=== PATIENT | female | born 1990 | race Caucasian/White ===

== ENCOUNTER → 2020-01-07 23:22 | Observation (INO) ==
[2020-01-07 23:06] LABS: Bilirubin,Urine Negative (Negative); Blood,Urine Negative (Negative); Clarity,Urine Clear (Clear); Color,Urine Yellow (Yellow); Glucose,Urine (UA) Normal (Normal); Ketones,Urine Negative (Negative); Leukocyte Esterase,Urine Negative (Negative); Nitrite,Urine Negative (Negative); PH,Urine 6.5 pH Units (5.0-8.0); Protein,Urine Negative (Neg-Trace); Specific Gravity,Urine 1.017 (1.010-1.025); Urobilinogen,Urine Normal (Normal)
== END | disposition home or self-care (01) ==
LOC: 1NENULAB
PROVIDERS: ADMIT Obstetrics & Gynecology; ATTEND Obstetrics & Gynecology

== ENCOUNTER 2020-06-13 06:00 | Inpatient (IN) ==
[2020-06-13] MEDS ORDERED: Naloxone 0.4 MG/ML INJ IVP PRN (07:29)
[2020-06-13] MEDS ORDERED: Lidocaine 1% 20 ML MDV INFILT PRN (07:29)
[2020-06-13] MEDS ORDERED: Azithromycin 500 MG in 0.9 % Sodium Chloride 250 ML IVPB ONE (07:29)
[2020-06-13] MEDS ORDERED: *HR* FentaNYL (PF) 100 MCG/2 ML VIAL IVP PRN (07:29)
[2020-06-13] MEDS ORDERED: Ondansetron 4 MG/2 ML VIAL IVP PRN (07:29)
[2020-06-13] MEDS ORDERED: Famotidine 20 MG/2 ML VIAL IVP PRN (07:29)
[2020-06-13] MEDS ORDERED: Metoclopramide 10 MG/2 ML VIAL IVP PRN (07:29)
[2020-06-13 08:24] LABS: Basophils % 0.3 %; Eosinophils % 0.3 %; Hematocrit 41.7 % (35.3-44.9); Hemoglobin 13.9 g/dL (11.5-15.4); Immature Granulocytes % 0.4 % (0-4); Lymphocytes # 2.3 K/mcL (0.6-4.6); Lymphocytes % 16.3 %; Mean Corpuscular HGB Conc 33.3 g/dL (31.6-35.5); Mean Corpuscular Volume 83.9 fL (83.0-100.0); Mean Platelet Volume 10.6 fL (9.4-12.4); Monocytes # 0.7 K/mcL (0.0-1.3); Monocytes % 4.6 %; Neutrophils # 11.1 K/mcL (1.6-8.9); Platelet Count 198 K/mcL (140-400); Red Blood Count 4.97 M/mcL (3.82-4.97); Red Cell Distribution Width 13.8 % (11.5-14.5); Segmented Neutrophils % 78.1 %; White Blood Count 14.2 K/mcL (4.3-11.1)
[2020-06-13 08:32] LABS: Amphetamine Screen,Urine Negative ng/mL (Cutoff=1000); Barbiturate Screen,Urine Negative ng/mL (Cutoff=200); Benzodiazepines Screen,Urine Negative ng/mL (Cutoff=200); Cannabinoid Screen,Urine Negative ng/mL (Cutoff = 50); Cocaine Screen,Urine Negative ng/mL (Cutoff= 300); Opiate Screen,Urine Negative ng/mL (Cutoff=300); Phencyclidine Screen,Urine Negative ng/mL (Cutoff=25)
[2020-06-13] MEDS ORDERED: EPHEDrine 50 MG/ML VIAL IVP PRN (09:26)
[2020-06-13] MEDS ORDERED: Epidural Premix (fent/bupiv) 110 ML EP SCH (09:30)
[2020-06-13 09:54] LABS: Protein/Creatinine Ratio,Urine 0.54 mg/mg (0.00-0.20)
[2020-06-13] MEDS ORDERED: Oxytocin 20 units/ LR 1000 mL 20 UNIT/1,000 ML BAG IVC ONE (09:54)
[2020-06-13] MEDS: Ringers Solution, Lactated 1,000 ML IVC SCH ×2 (09:58→12:58)
[2020-06-13 10:00] LABS: Alanine Aminotransferase 11 Units/L (7-52); Aspartate Amino Transferase 15 Units/L (13-39); BUN/Creatinine Ratio 22 (6-26); Blood Urea Nitrogen 13 mg/dL (6-20); Lactate Dehydrogenase 131 Units/L (140-271); Uric Acid 6.2 mg/dL (2.3-7.6); eGFR For African Americans > 60 (> 60); eGFR For Non-African Americans > 60 (> 60)
[2020-06-13] MEDS ORDERED: Oxytocin 20 units/ LR 1000 mL 20 UNIT/1,000 ML BAG IVC SCH ×2 (10:00→19:20)
[2020-06-13] MEDS ORDERED: Magnesium Sulf 20 gm/SW 500mL 20 GM/500 ML IV.SOLN IVC SCH (11:30)
[2020-06-13] MEDS ORDERED: *HR* FentaNYL (PF) 100 MCG/2 ML VIAL ONE (11:42)
[2020-06-13] MEDS ORDERED: Ropivacaine/PF 0.2% 20 ML VIAL ONE (11:42)
[2020-06-13] MEDS ORDERED: *HR* Labetalol 20 MG/4 ML SYRINGE IVP ONE ×3 (12:31→13:06)
[2020-06-13] MEDS ORDERED: Calcium Gluconate 1,000 MG/10 ML VIAL IVP ONE (14:03)
[2020-06-13] MEDS ORDERED: Measles/Mumps/Rubella Vacc 0.5 ML VIAL SQ PRN (19:20)
[2020-06-13] MEDS ORDERED: Acetaminophen 325 MG TABLET PO PRN (19:20)
[2020-06-13] MEDS: Magnesium Sulf 20 gm/SW 500mL 20 GM/500 ML IV.SOLN IVC SCH (22:00)
[2020-06-13] MEDS: Ibuprofen 600 MG TABLET PO PRN (22:02)
[2020-06-14 07:01] LABS: Basophils # 0.1 K/mcL (0.0-0.2); Basophils % 0.4 %; Eosinophils # 0.1 K/mcL (0.0-0.6); Eosinophils % 0.5 %; Hematocrit 37.5 % (35.3-44.9); Immature Granulocytes % 0.2 % (0-4); Lymphocytes % 15.9 %; Mean Corpuscular HGB Conc 32.8 g/dL (31.6-35.5); Mean Corpuscular Hemoglobin 28.1 pg (28.0-33.3); Mean Corpuscular Volume 85.8 fL (83.0-100.0); Mean Platelet Volume 10.8 fL (9.4-12.4); Monocytes # 0.9 K/mcL (0.0-1.3); Monocytes % 7.3 %; Neutrophils # 9.5 K/mcL (1.6-8.9); Platelet Count 183 K/mcL (140-400); Red Blood Count 4.37 M/mcL (3.82-4.97); Red Cell Distribution Width 13.8 % (11.5-14.5); Segmented Neutrophils % 75.7 %; White Blood Count 12.5 K/mcL (4.3-11.1)
[2020-06-14 07:02] LABS: Hemoglobin 12.3 g/dL (11.5-15.4)
[2020-06-14 07:12] LABS: Alanine Aminotransferase 10 Units/L (7-52); Aspartate Amino Transferase 18 Units/L (13-39); BUN/Creatinine Ratio 14 (6-26); Blood Urea Nitrogen 8 mg/dL (6-20); Lactate Dehydrogenase 191 Units/L (140-271); eGFR For African Americans > 60 (> 60); eGFR For Non-African Americans > 60 (> 60)
[2020-06-14] MEDS: Magnesium Sulf 20 gm/SW 500mL 20 GM/500 ML IV.SOLN IVC SCH (07:42)
[2020-06-14] MEDS: Prenatal Vit/FA 1 EACH TABLET PO SCH (07:44)
[2020-06-14] MEDS: Ibuprofen 600 MG TABLET PO PRN ×2 (07:44→20:21)
[2020-06-14] MEDS ORDERED: NON-FORMULARY MEDICATION 1 EACH EACH (Pnv No.95/Ferrous Fum/Folic Ac [Prenatal Caplet] 1 T PO SCH (09:00)
[2020-06-15 08:08] VITALS: BP 142/80
[2020-06-15] MEDS: Ibuprofen 600 MG TABLET PO PRN (09:59)
[2020-06-15] MEDS: Prenatal Vit/FA 1 EACH TABLET PO SCH (09:59)
== END 2020-06-15 12:10 | disposition home or self-care (01) | DRG 807 ==
LOC: 1NENULAB 06:08 → 1NENUOBS 21:34
PROVIDERS: ADMIT Obstetrics & Gynecology; ATTEND Obstetrics & Gynecology